=== PATIENT | male | born 1995 | race Two or more races ===

== ENCOUNTER 2023-07-13 20:36 | Emergency (ER) | payer OTHER ==
[~2023-07-13] VITALS: Ht 180.3 cm; Wt 75.0 kg
[2023-07-13 23:59] VITALS: BP 130/78; PULSE 75; RESP 18; TEMP 98; O2SAT 99
[2023-07-14] MEDS ORDERED: AMOX875T4 PO
[2023-07-14] MEDS ORDERED: IBUP-1456 PO
== END 2023-07-14 00:03 | disposition home or self-care (01) ==
LOC: ER 20:52
DX: S51.832A Puncture wound without foreign body of left forearm, initial encounter (principal); Z79.1 Long term (current) use of non-steroidal anti-inflammatories (NSAID); Z79.899 Other long term (current) drug therapy; W54.0XXA Bitten by dog, initial encounter; Y93.89 Activity, other specified; Y92.89 Other specified places as the place of occurrence of the external cause; Y99.8 Other external cause status
CPT/HCPCS: 73110